=== PATIENT | female | born 1935 | race Caucasian/White ===

== ENCOUNTER 2018-07-08 20:16 | Inpatient (IN) | payer OTHER ==
[~2018-07-08] VITALS: Ht 167.6 cm; Wt 92.4 kg
[2018-07-08] MEDS ORDERED: AIRBORNE TABLE1 EACH PO ×2 (22:09→22:20)
[2018-07-08] MEDS ORDERED: ASPIRIN81 M2 PO (22:10)
[2018-07-08] MEDS ORDERED: LIORESAL 10 MG10 MG PO (22:11)
[2018-07-08] MEDS ORDERED: CALCIUM MAGNES1 EAC2 PO (22:12)
[2018-07-08] MEDS ORDERED: DICLOFENAC SODI25 MG PO (22:13)
[2018-07-08] MEDS ORDERED: IBUPROFEN 200200 M1 PO (22:14)
[2018-07-08] MEDS ORDERED: ESTRADIOL 1 MG T1 M1 PO (22:14)
[2018-07-08] MEDS ORDERED: LISINOPRIL20 MG PO (22:15)
[2018-07-08] MEDS ORDERED: ANTIVERT25 MG PO (22:15)
[2018-07-08] MEDS ORDERED: MIRALAX17 GM PO (22:16)
[2018-07-08] MEDS ORDERED: CENTRUM SILVER1 EAC2 PO (22:16)
[2018-07-08] MEDS ORDERED: REQUIP 0.25 M0.25 M1 PO (22:17)
[2018-07-08] MEDS ORDERED: STOOL SOFTENER100 MG PO (22:17)
[2018-07-08] MEDS ORDERED: AFRIN30 ML NASAL (22:19)
[2018-07-09] VITALS (8 sets, daily range): BP systolic 103–121; BP diastolic 56–70
[2018-07-09 03:42] LABS: ALBUMIN 2.3 g/dL (3.4-5.0); CALCIUM 7.9 mg/dL (8.5-10.1); CREATININE 0.8 mg/dL (0.6-1.0); MAGNESIUM 1.9 mg/dL (1.8-2.4); POTASSIUM 3.3 mmol/L (3.5-5.1); TOTAL BILIRUBIN 1.2 mg/dL (<0.1-1.0); TOTAL PROTEIN 5.7 g/dL (6.4-8.2)
[2018-07-09 04:00] LABS: HEMATOCRIT 39.5 % (37.0-47.0); HEMOGLOBIN 13.6 gm/dL (12.0-15.0); MCHC 34.4 g/dL (28.0-37.0); RBC 4.24 mil/uL (4.20-5.00); RDW 14.3 % (10.5-14.5); WBC 10.4 thou/uL (4.0-11.0)
--- NOTE | 2018-07-09 04:00 | NUR ---
PT. ARRIVED AROUND 2200; AOX4; C/O ABDOMINAL PAIN; 09/09; REFUSED PAIN MEDICATION; ST. ABLE TO WALK BY HERSEF, BUT FEEL WEAK; EDUCATED ABOUT FALL PREVENTIONS; ST. UNDERSTANDING; VICE PRESIDENT PAYMENT NOTIFIED OF PT. ARRIVAL; ORDERS ACKNOWLEDGE; PT. REQUESTED PRN NAUSEA MEDICATION; PRN MEDICATION GIVEN; ABLE TO REST AFTER 0100; NO C/O NAUSEA THROUGH THE NIGHT; NS HEART RHYTHM; NPO AFTER MIDNIGHT; ASSESSMENT CHARGED; POC INITIATED; WILL PASS ON REPORT.
--- NOTE | 2018-07-09 11:22 | 2DMMODE ---
[facility] [address] [place] [address] 2 D/M-MODE ECHOCARDIOGRAM Name: ANALI RUSSO Room #: 218-P ADM IN M.R.#: [id number] ������������� Admission: 07/08/18 ������������� Attend Phys: Enoc Faust, Discharge: ��� ������������� ��� Date of : 37 Date of Service: 07/09/18 1122 �� Report #: [id number] �������� ��������������������������������������������[id number] THIS REPORT FOR: //name// APPROVED REPORT Study performed: 07/09/2018 10:22:59 EXAM: Comprehensive 2D, Doppler, and color-flow Echocardiogram Patient Location: Echo lab Room #: 218 Status: routine BSA: 1.93 HR: 70 bpm BP: 121/70 mmHg Rhythm: NSR Other Information Study Quality: Good Indications Atrial flutter 2D Dimensions RVDd: 49.09 mm IVSd: 10.54 (7-11mm) LVOT Diam: 23.39 (18-24mm) LVDd: 42.12 mm PWd: 10.86 (7-11mm) Ascending Ao: 33.90 (22-36mm) LVDs: 27.82 (25-40mm) Aortic Root: 30.61 mm IVC: 29.00 mm Volumes Left Atrial Volume (Systole) Single Plane 4CH: 61.92 mL Single Plane 2CH: 66.20 mL LA ESV Index: 37.00 mL/m2 Aortic Valve LVOT Max P.93 mmHg LVOT Max V: 0.99 m/s Mitral Valve E/A Ratio: 1.5 MV Decel. Time: 152.40 ms MV E Max Gato.: 1.06 m/s MV A Gato.: 0.70 m/s MV PHT: 44.19 ms [facility] [place] [address] [place] [address] 2 D/M-MODE ECHOCARDIOGRAM Name: ANALI RUSSO Room #: 218-P [facility] IN ..#: [id number] ������������� Admission: 07/08/18 ������������� Attend Phys: Enoc Faust, Discharge: ��� ������������� ��� Date of : 37 Date of Service: 07/09/18 1122 �� Report #: [id number] �������� ��������������������������������������������[id number] IVRT: 92.27 ms Pulmonary Valve PV Peak Gato.: 0.73 m/s PV Peak Gr.: 2.13 mmHg Pulmonary Vein P Vein S: 0.53 m/s P Vein A: 0.29 m/s P Vein D: 0.43 m/s P Vein A Dur.: 106.1 msec P Vein S/D Ratio: 1.23 Tricuspid Valve TR Peak Gato.: 2.90 m/s TR Peak Gr.: 33.63 mmHg PA Pressure: 44.00 mmHg Left Ventricle The left ventricle is normal size. There is normal LV segmental wall motion. There is normal left ventricular wall thickness. The left ventricular systolic function is normal. The left ventricular ejection fraction is within the normal range. LVEF is 60-65%. Grade II - pseudonormal filling dynamics. Right Ventricle The right ventricle is normal size. The right ventricular systolic function is normal. Atria Left atrium is dilated. Right atrium is dilated. Aortic Valve The aortic valve is normal in structure. No aortic regurgitation is present. There is no aortic valvular stenosis. Mitral Valve The mitral valve is normal in structure. Mild mitral regurgitation. No evidence of mitral valve stenosis. Tricuspid Valve The tricuspid valve is normal in structure. There is moderate tricuspid regurgitation. Estimated PAP 44 mmHg. There is moderate pulmonary hypertension. Pulmonic Valve The pulmonary valve is normal in structure. There is no pulmonic valvular regurgitation. [facility] [address] [place] [address] 2 D/M-MODE ECHOCARDIOGRAM Name: ANALI RUSSO Room #: 218-P [facility] IN M.R.#: [id number] ������������� Admission: 07/08/18 ������������� Attend Phys: Enoc Faust, Discharge: ��� ������������� ��� Date of : 37 Date of Service: 07/09/18 1122 �� Report #: [id number] �������� ��������������������������������������������[id number] Great Vessels The aortic root is normal in size. IVC is dilated and collapses <50% with inspiration. Pericardium There is no pericardial effusion. <Conclusion> The left ventricle is normal size. There is normal left ventricular wall thickness. The left ventricular systolic function is normal. Grade II - pseudonormal filling dynamics. The right ventricle is normal size. Left atrium is dilated. Right atrium is dilated. The aortic valve is normal in structure. Mild mitral regurgitation. There is moderate tricuspid regurgitation. Estimated PAP 44 mmHg. ��������������������������������������������� <ELECTRONICALLY SIGNED> ���������������������������������������� By: Terrell Richards MD ��������������������������������������������� 07/09/18 112 21 21 Terrell Richards MD /INF
--- NOTE | 2018-07-09 11:42 | H ---
[facility] [place] [address] [place] [address] HISTORY AND PHYSICAL Name: ANALI RUSSO Room #: 218-P ADM IN M.R.#: [id number] Admission: 07/08/18 ������������������ Attend Phys: Enoc Faust DO Discharge: ������������������ Date of : 36 Report #: [id number] THIS REPORT FOR: //name// CC: [facility] physician/PCP Aki Ware DATE OF SERVICE: 07/08/2018 ATTENDING PHYSICIAN: Dr. Ware. PRIMARY CARE PHYSICIAN: Marni Kaba, nurse practitioner with Leonardo Felton. CHIEF COMPLAINT: Abdominal pain and rapid heart rate. HISTORY OF PRESENT ILLNESS: The patient is an 83-year-old female who was sent as a direct admission from [facility] for abnormal abdominal CT findings as well as new onset atrial flutter with rapid ventricular response. She had presented there with a 5-day history of nausea, vomiting and diarrhea. She has been having multiple episodes of vomiting and decreased p.o. intake with a few episodes of loose stools. She denies any fevers. She also complains of some upper abdominal soreness for the last 2 days. She denies seeing any blood in her emesis or stools. Denies any ill contacts. Denies eating out at any restaurants or any spoiled foods. She lives with her spouse who has not had any similar illness. She had been trying some bland foods at home and still her symptoms were not improving, so she presented to the ER at [place]. Upon arrival, her heart rate was 155 in an atrial flutter rhythm. She denies any history of atrial flutter or any cardiac problems. She did note that she had been feeling worn out and with generalized weakness for the last few days. She did not have any palpitations or shortness of breath. She did have some slight chest heaviness. She was given a Cardizem bolus in the ER there that converted her to sinus rhythm. Her GI symptoms also were improving after receiving antiemetics. She denies any history of pancreas or gallbladder issues, but does note that sometimes when she is lying in bed, she will have some sharp pains in the right upper quadrant and they will "make me catch my breath, "it will take her a while to reposition and eventually the pain will go away. She does not necessarily relate this to after eating, but it has been occurring more and more frequently over the last few months. She is currently resting comfortably, in no acute distress. PAST MEDICAL HISTORY: Osteoporosis, hypertension, vertigo and restless leg syndrome. PAST SURGICAL HISTORY: Hysterectomy, left total knee replacement and cataract repair. ALLERGIES: CODEINE CAUSES ANXIETY AND NERVOUSNESS. [address] [address] HISTORY AND PHYSICAL Name: ANALI RUSSO Room #: 218-P ADM IN M.R.#: [id number] Admission: 07/08/18 ������������������ Attend Phys: Enoc Faust DO Discharge: ������������������ Date of : 36 Report #: [id number] HOME MEDICATIONS: Baclofen 10 mg p.o. t.i.d., lisinopril 20 mg daily, aspirin 81 mg daily, diclofenac 50 mg b.i.d., ibuprofen 200 mg b.i.d., Requip 0.25 mg at bedtime, calcium, glucosamine, magnesium 1 tab p.o. daily, Afrin nasal spray p.r.n., MiraLax 17 grams daily, Colace 100 mg b.i.d., meclizine p.r.n., estradiol 1 mg p.o. daily and multivitamin 1 tab daily. SOCIAL HISTORY: The patient is a never smoker, denies any alcohol or drug use. She lives at home with her spouse. She ambulates independently. She is a full code. FAMILY HISTORY: Her sister is currently battling stage 4 lung cancer. She was never a smoker. Her mother suddenly they think from an ND after having flu symptoms. REVIEW OF SYSTEMS: Twelve-point review of systems was reviewed with the patient, otherwise negative unless stated in the HPI. PHYSICAL EXAMINATION: GENERAL: The patient is an alert female in no acute distress. VITAL SIGNS: Temperature is 36.4, heart rate 72, respirations 18, blood pressure 103/60 and oxygen 100% on room air. HEENT: PERRLA. Sclerae nonicteric. Oral mucosa is pink and moist. NECK: Supple, no JVD noted. CARDIAC: Normal S1, S2. No murmurs, rubs or gallops. RESPIRATORY: Breath sounds are clear bilaterally. She is diminished in the bases. Breathing is nonlabored. ABDOMEN: Obese, soft and nondistended. She did have some slight pain with palpation in the epigastric and right upper quadrant. Bowel sounds are positive. VASCULAR: 1+ bilateral lower extremity edema. Pedal pulses are 2+. NEUROLOGIC: The patient is alert and oriented x 3. Speech is clear. She is moving all extremities equally. No focal neuro deficits noted. LABORATORIES AND DIAGNOSTICS: Blood work done at [place] showed a WBC of 14.2, hemoglobin 17 and platelets 202. Sodium 136, potassium 3.4, BUN 24, creatinine 0.9 and glucose is 137. Lactic acid is 1.7, lipase 432 and bilirubin 1.4. AST 57, ALT 274 and alkaline phosphatase 133. Troponin is less than 0.17 and INR 1.0. UA: Positive nitrite, moderate leukocyte esterase, 50-100 wbc's and moderate bacteria. EKG showed atrial flutter, 2:1 conduction and rate of 154. CT of abdomen and pelvis showed edema seen within the upper abdomen including adjacent to the stomach and pancreas. Some possible causes include pancreatitis as well as gastritis or gastric ulcer and would consider followup to ensure this is resolved and there is not an underlying neoplastic cause such as a gastric wall mass. There may be some fluid within the pelvis with a portion of it appearing slightly larger than simple density. This could be secondary to some [facility] [address] [place] [address] HISTORY AND PHYSICAL Name: ANALI RUSSO Room #: 218-P ADM IN M.R.#: [id number] Admission: 07/08/18 ������������������ Attend Phys: Enoc Faust DO Discharge: ������������������ Date of : 36 Report #: [id number] internal complexity from causes such as debris or blood within. At the left lung base, there is a focus of consolidation as well as fluid. This could be secondary to atelectasis, but pneumonia is also in the differential. The gallbladder was somewhat distended and there are prominence of some of the intrahepatic bile ducts and there is a couple of sub 4 mm nodules of the right lung base. ASSESSMENT AND PLAN: 1. Pancreatitis. Etiology for this is not clear, but it is possibly gallstone pancreatitis as there are some elevations in bilirubin and liver enzymes and gallbladder sludge noted on CT. We will keep her n.p.o. for ultrasound of the abdomen in the morning. GI is consulted. 2. Atrial flutter with rapid ventricular response. This is new onset. This did resolve with Cardizem bolus x 1. We will check TSH level and echo in the morning. This may be possibly due to her current infections. Continue to monitor on telemetry. 3. Urinary tract infection. She has not been symptomatic with this. We will add urine culture and continue Zosyn 4. Possible left-sided pneumonia. She does have minimal symptoms. We will add blood cultures. Continue Zosyn and add nebulizer treatments. 5. Hypokalemia. This will be replaced. Repeat labs in the morning. 6. Deep venous thrombosis prophylaxis, place sequential compression devices. We will continue to follow the patient closely throughout the hospitalization and make changes based on clinical status. ��������������������������������������������� <ELECTRONICALLY SIGNED> ���������������������������������������� By: JAQUELINE Richardson ��������������������������������������������� 07/09/18 1142 [id number] JAQUELINE Richardson /nt
[2018-07-09 13:29] LABS: ALBUMIN 2.3 g/dL (3.4-5.0); CALCIUM 8.5 mg/dL (8.5-10.1); CREATININE 0.8 mg/dL (0.6-1.0); POTASSIUM 3.8 mmol/L (3.5-5.1); TOTAL PROTEIN 5.8 g/dL (6.4-8.2)
--- NOTE | 2018-07-09 18:48 | NUR ---
ASSUMED CARE, PATIENT AWAKE AND ALERT BUT UNCOMFORTABLE. VSS, DR. ROSALES CALLED AND ORDERS RECIEVED FOR MUCINEX. ECHO COMPLETED, DIET ADVANCED TO FULL LIQUID. IF TOLERATING AND LABS ARE WNL, WILL GO HOME IN AM
--- NOTE | 2018-07-10 03:32 | NUR ---
ASSUMED PT CARE AT 1900. PT A/OX4. VITAL SIGNS STABLE, ASSESSMENT CHARTED. NO COMPLAINTS OF CHEST PAIN/ABDOMINAL PAIN. PT COMPLAINED OF SOME NAUSEA, ZOFRAN GIVEN WHICH SEEMED TO HELP. NO FURTHER COMPLAINTS OF NAUSEA THROUGH OUT THE NIGHT. CONSENT FOR EGD SIGNED. PT RESTED WELL THROUGH THE NIGHT. PROGRESSING TOWARD PLAN OF CARE. WILL CONTINUE TO CLOSELY MONITOR.
[2018-07-10 04:51] LABS: ABSOLUTE NEUTROPHILS 9.6 thou/uL (1.4-8.2); BASOPHILS 0.4 % (0.0-2.0); EOSINOPHILS 0.5 % (0.0-3.0); HEMATOCRIT 35.9 % (37.0-47.0); HEMOGLOBIN 12.3 gm/dL (12.0-15.0); LYMPHOCYTES 4.4 % (24.0-44.0); MCH 31.6 pg (26.0-34.0); MCHC 34.2 g/dL (28.0-37.0); MCV 92.2 fL (80.0-100.0); PLATELET COUNT 147 thou/uL (150-400); POLYS 86.7 % (36.0-66.0); RBC 3.89 mil/uL (4.20-5.00); RDW 14.5 % (10.5-14.5); WBC 11.1 thou/uL (4.0-11.0)
[2018-07-10 05:43] VITALS: BP 106/56
[2018-07-10 07:10] VITALS: BP 104/66
[2018-07-10 16:11] VITALS: BP 117/91
--- NOTE | 2018-07-10 16:40 | NUR ---
CAME BACK FROM EGD AT 1600, VSS, DENIES ANY PAIN. TOOK ALL HER SCHEDUELD MORNING MEDS. STILL HAS SOME BELCHING. FEELS BETTER OVERALL. WILL CONTINUE TO ASSESS AND ASSIST WITH ADLs NEEDED.
[2018-07-10 19:37] VITALS: BP 108/46
[2018-07-10 20:57] VITALS: BP 108/46
[2018-07-11 04:10] VITALS: BP 133/68
--- NOTE | 2018-07-11 04:18 | NUR ---
ASSUMED PT CARE AT 1900. PT A/OX4, STATED SHE FELS VERY GOOD. VITAL SIGNS STABLE, ASSESSMENT CHARTED. NO COMPLAINTS OF PAIN, NO COMPLAINTS OF NAUSEA OR EPISODES OF VOMITING. PT TOLERATING FULL LIQUIDS APPROPRIATELY. PT RESTED WELL THROUGH THE NIGHT. CALL APPROPRIATELY. PROGRESSING TOWARD PLAN OF CARE. WILL CONTINUE TO MONITOR.
[2018-07-11] MEDS ORDERED: CEFUROXIME250 MG PO (07:55)
[2018-07-11] MEDS ORDERED: PANTOPRAZOLE SO40 M1 PO (07:56)
[2018-07-11] MEDS ORDERED: CARAFATE 1 GM TA1 G1 PO (07:56)
[2018-07-11] MEDS ORDERED: LOPRESSOR25 PO (08:00)
[2018-07-11 08:32] VITALS: BP 106/55
[2018-07-11 12:00] VITALS: BP 117/57
--- NOTE | 2018-07-11 15:30 | P ---
[facility] [place] [address] [address] PROCEDURE REPORT Name: ANALI RUSSO Room #: 218-P ADM IN M.R.#: [id number] Admission: 07/08/18 ������������������ Attend Phys: Enoc Faust DO Discharge: ������������������ Date of : 36 Report #: [id number] THIS REPORT FOR: //name// CC: [facility] physician/PCP Enoc Faust DO DATE OF SERVICE: 07/10/2018 PATIENT OF: Enoc Faust DO. PROCEDURE: EGD with biopsies. INDICATION FOR PROCEDURE: The patient has had nausea, vomiting, epigastric pain, and thickening of the stomach seen on imaging studies. EGD is being performed to try to diagnose this problem. Informed consent for this procedure was obtained prior to the administration of any medication. The risks of the procedure, which include bleeding, perforation, infection, complications of sedation and the possibility I could miss something have been explained to the patient. She has indicated her consent by signing. DESCRIPTION OF PROCEDURE: Propofol was slowly titrated before and during this procedure for the patient comfort by the Anesthesia service. The Olympus upper videoscope was introduced through the upper esophageal sphincter and advanced under direct visualization to the third portion of the duodenum. Findings are noted on withdrawal of the scope. The second portion of the duodenum appears normal throughout its entirety. The duodenal bulb appears erythematous and edematous and there are tiny white based nonbleeding ulcerations scattered throughout the duodenal bulb. Pylorus, erythematous mucosa. Antrum, erythematous mucosa with edema and ulceration. There were no visible vessels or bleeding coming from the ulcerations in the prepyloric region of the antrum. Biopsies were obtained from the antrum x 3 for histopathology. In the body, cardia and fundus of the stomach, there are several sessile polyps that appear to be benign. These are biopsied x 2 for histopathology. Good hemostasis was noted after those biopsies. Retroflex view did not reveal any hiatal hernia. The scope was withdrawn to the esophagus. Esophageal mucosa appeared normal throughout its entirety. The scope was withdrawn. The patient went to the recovery area in stable condition. She tolerated the procedure well. IMPRESSION: 1. Normal esophagus. 2. Multiple proximal gastric polyps, likely benign. I biopsied two of them to [address] [address] PROCEDURE REPORT Name: ANALI RUSSO Room #: 218-P [facility] IN M.R.#: [id number] Admission: 07/08/18 ������������������ Attend Phys: Enoc Faust DO Discharge: ������������������ Date of : 36 Report #: [id number] be sure they were okay and if they are adenomas; however, they will all need to be removed. 3. Prepyloric antral ulcerations, biopsied. No visible vessels, nonbleeding. 4. Duodenitis of the bulb with multiple tiny nonbleeding ulcerations. These contained no visible vessels. 5. The patient's pharyngeal area looks normal. RECOMMENDATIONS: My recommendations are to await the biopsy results. Continue the proton pump inhibitors. I would avoid the use of aspirin and nonsteroidals if at all possible in this patient. Thank you very much for allowing us to participate in her care. ��������������������������������������������� <ELECTRONICALLY SIGNED> ���������������������������������������� By: Jen Mart DO ��������������������������������������������� 07/11/18 1530 1533 0725 Jen Mart DO /nt
[2018-07-11 16:00] VITALS: BP 114/70
[2018-07-11 19:04] VITALS: BP 111/54
--- NOTE | 2018-07-11 20:20 | NUR ---
SHIFT SUMMARY: PT HAD NUMEROUS CONCERNS THROUGHOUT SHIFT TODAY. SEE PT CONCERNS IN PT ASSESSMENT FOR DETAILS. PAGED DR. MILLAN X 2, NO CALL RETURNED. DANIELLE TSAI APRN PRESENT, UPDATED, THEN DISCHARGE DC'D. DR. ZAVALA PRESENT TO SEE PT. PT ALSO CONTINUING TO C/O OF BELCHING. BY SHIFT REPORT, CARAFATE AND PROTONIX IV, RESOLVED BELCHING WITH PT STATING SHE FEELS BETTER. PT LOOKS BETTER, COMPLEXION IMPROVED. NOW, PT STATUS IS IMPROVING.
[2018-07-12] VITALS (7 sets, daily range): BP systolic 111–127; BP diastolic 54–73
--- NOTE | 2018-07-12 04:43 | NUR ---
ASSUMED PT CARE AT 1900. PT A/OX4, VITAL SIGNS STABLE, ASSESSMENT CHARTED. NO COMPLAINTS OF CHEST PAIN/PAIN. NO EPISODES/COMPLAINTS OF NAUSEA. BELGING SIGNIFICANTLY REDUCED PT STATED. PT AMBULATED TWICE IN HALLWAY/ TOLERATED PROCEDURE APPROPRIATELY. NO COMPLAINTS OF DIZZINESS OR WEAKNESS. PT MENTIONED THAT SHE WILL LIKE TO DISCUSS OR REVIEW HER HOME MEDICATIONS WITH DR HOME REGIMEN DIFFERENT FROM WHAT SHE HAS BEEN RECIEVING HERE AT THE HOSPITAL. EDUCATION PROVIDED REGARDING THE CHANGES THAT HAPPEN AND WHY THE CHANGES. PT VERBALIZED THAT MOST OF THE MEDS SHE TAKES MORE THAN ONCE HERE AT THE HOSPITAL SHE NORMALLY TAKES ONLY ONCE AT HOME. PT WAS ENCOURGAED TO DISCUSS WITH DR DURING ROUNDS. SHE STATED SHE WILL LIKE TO START TAKING SOME MEDICATION FOR HER ARTHRITIS AND BACK PAIN. WILL PASS ON TO DAY NURSE. PT OTHER PARRA RESTED WELL THROUGH THE NIGHT. PROGRESSING TOWARD PLAN OF CARE. WILL CONTINUE TO MONITOR.
[2018-07-12 05:20] LABS: HEMATOCRIT 35.1 % (37.0-47.0); HEMOGLOBIN 12.1 gm/dL (12.0-15.0); MCHC 34.5 g/dL (28.0-37.0); MCV 92.6 fL (80.0-100.0); RBC 3.79 mil/uL (4.20-5.00); RDW 14.2 % (10.5-14.5); WBC 8.8 thou/uL (4.0-11.0)
[2018-07-12 05:48] LABS: ALBUMIN 1.9 g/dL (3.4-5.0); CALCIUM 8.4 mg/dL (8.5-10.1); CREATININE 0.6 mg/dL (0.6-1.0); POTASSIUM 3.4 mmol/L (3.5-5.1); TOTAL BILIRUBIN 0.4 mg/dL (<0.1-1.0); TOTAL PROTEIN 5.4 g/dL (6.4-8.2)
--- NOTE | 2018-07-12 10:44 | NUR ---
Pt dcing home today with her spouse. Special Services Director visited with them at bedside. Pt is a&ox4 and indep with gait and adl's. She denies any dc planning needs or concerns. She plans to f/u with her pcp Dr. Marni Kaba and GI [place]. She also wanted referral to ENT for future reference. Spouse is supportive and can help as needed. They live in [place]. The pt does not anticipate being home bound and declined HH f/u.
--- NOTE | 2018-07-12 13:08 | PATH ---
[facility] [place] [address] PATHOLOGY RPT PROCEDURE Name: ANALI RUSSO Room #: 218-P ADM IN M.R.#: [id number] ������������������ Admission: 07/08/18 ������������������ Date of : 36 Discharge: Report #: [id number] Path Case #: [id number] [facility] Accession Number: [id number] . 01 Material submitted: . PART A: stomach - BX THICKENED ANTRUM PART B: stomach - BX PROXIMAL GASTRIC POLYP. Modifiers: proximal . 01 Clinical history: . Pre-op diagnosis: N/V, abnormal CT Post-op diagnosis: Gastric ulcers, duodenal bulb ulcer, proximal gastric polyp . 02 Diagnosis: A. 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 - There is no evidence of atypia or malignancy. - The immunoperoxidase stain for Helicobacter pylori is negative. . B. Gastric biopsy "proximal gastric polyp": - Fundic gland polyp. - There is no evidence of atypia or malignancy. (SHA:daksha 07/12/2018) QTP/07/12/2018 . 02 Electronically signed: . Ameya Salter MD, Pathologist NPI- [id number] . 01 Gross description: . A. The specimen is received in formalin, labeled "Marlynne Snare, biopsy thickened antrum". Received are four segments of pale [place] soft tissue ranging in size from 0.3 to 0.4 cm in maximum dimensions. The specimen is submitted entirely in cassette A1. . B. The specimen is received in formalin, labeled "Marlynne Snare, biopsy proximal gastric polyp". Received are two segments of pale [place] soft tissue measuring 0.1 and 0.4 cm in maximum dimensions. The specimen is submitted entirely in cassette B1. (CAA; 07/11/2018) QAC/QAC . 02 Pathologist provided ICD-10: K31.9, K31.7 . 02 [place] [address] PATHOLOGY RPT PROCEDURE Name: ANALI RUSSO Room #: 218-P [facility] IN M.R.#: [id number] ������������������ Admission: 07/08/18 ������������������ Date of : 36 Discharge: Report #: [id number] Path Case #: [id number] Specimen Comment: A courtesy copy of this report has been sent to Specimen Comment: [phone], . Specimen Comment: Report sent to / DR ROSALES Performed at: [address], [place], [place] [id number] MD Marcus Quiroz MD Phone: [phone] Performed at: [address], [place], [place] [id number] MD Elizabeth Arroyo MD Phone: [phone]
== END 2018-07-12 14:24 | disposition home or self-care (01) | DRG 383 ==
LOC: 2N 20:16 → ENTRNSPT 07-12 14:09 → EDTRNSPTSTS 07-12 14:13 → 2N 07-12 14:24
PROVIDERS: Nurse Practitioner; Nurse Practitioner Acute Care; ADMIT Internal Medicine Geriatric Medicine
PROC: 0DB68ZZ Excision of Stomach, Via Natural or Artificial Opening Endoscopic (ICD-10-PCS; principal; 2018-07-10)
PROC: 0DB68ZX Excision of Stomach, Via Natural or Artificial Opening Endoscopic, Diagnostic (ICD-10-PCS; principal; 2018-07-10)
DX: K25.9 Gastric ulcer, unspecified as acute or chronic, without hemorrhage or perforation (principal); K85.90 Acute pancreatitis without necrosis or infection, unspecified; N39.0 Urinary tract infection, site not specified; I48.92 Unspecified atrial flutter; J90 Pleural effusion, not elsewhere classified; K26.9 Duodenal ulcer, unspecified as acute or chronic, without hemorrhage or perforation; M81.0 Age-related osteoporosis without current pathological fracture; G25.81 Restless legs syndrome; I10 Essential (primary) hypertension; E87.6 Hypokalemia; Z96.652 Presence of left artificial knee joint; K31.7 Polyp of stomach and duodenum; K21.9 Gastro-esophageal reflux disease without esophagitis; I48.91 Unspecified atrial fibrillation; E86.0 Dehydration; M62.84 Sarcopenia; Z79.1 Long term (current) use of non-steroidal anti-inflammatories (NSAID); Z90.710 Acquired absence of both cervix and uterus; Z98.49 Cataract extraction status, unspecified eye; Z88.6 Allergy status to analgesic agent; Z88.8 Allergy status to other drugs, medicaments and biological substances; Z80.1 Family history of malignant neoplasm of trachea, bronchus and lung; Z82.49 Family history of ischemic heart disease and other diseases of the circulatory system; Z79.82 Long term (current) use of aspirin; Z79.899 Other long term (current) drug therapy; G89.29 Other chronic pain; K29.80 Duodenitis without bleeding
CPT/HCPCS: 10081; 62110; 62900; 70005

== ENCOUNTER 2018-07-22 17:47 | Inpatient (IN) | payer OTHER ==
[~2018-07-22] VITALS: Ht 167.6 cm; Wt 85.6 kg
[~2018-07-22 17:47] MED LIST: AFRIN30 ML NASAL; AIRBORNE TABLE1 EACH PO; ANTIVERT25 MG PO; ASPIRIN81 M2 PO; CALCIUM MAGNES1 EAC2 PO; CARAFATE 1 GM TA1 G1 PO; CEFUROXIME250 MG PO; CENTRUM SILVER1 EAC2 PO; DICLOFENAC SODI25 MG PO; ESTRADIOL 1 MG T1 M1 PO; IBUPROFEN 200200 M1 PO; LIORESAL 10 MG10 MG PO; LISINOPRIL20 MG PO; LOPRESSOR25 PO; MIRALAX17 GM PO; PANTOPRAZOLE SO40 M1 PO; REQUIP 0.25 M0.25 M1 PO; STOOL SOFTENER100 MG PO
[2018-07-22] MEDS ORDERED: LIORESAL 10 MG10 MG PO (23:04)
[2018-07-22] MEDS ORDERED: COLACE100 MG PO (23:05)
[2018-07-22] MEDS ORDERED: AFRIN30 ML NASAL (23:07)
[2018-07-22] MEDS ORDERED: FLONASE 0.05%50 MCG NASAL (23:08)
[2018-07-22 23:10] VITALS: BP 118/76
--- NOTE | 2018-07-23 04:09 | NUR ---
ADMITTED FROM [facility] ER UNDER 'S CARE. ADMIT WITH CHF, AFIB RVR. AXOX4. GOOD HISTORIAN OF PT'S HEALTH. AFIB UNCONTROLLED HR UPON TRASFER. PT WAS ON CARDIZEM DRIP UPON ADMISSION. HOWEVER, HR RHYTHM CONVERTED TO SR SHORTLY AFTER ADMISSION AND RATE BECAME WITHIN NORMAL RANGES. UPON ASSESSMET HEART RR NORMAL AND CHEST CTA BILAT ON RA. PT WAS EVALUATED AT THE BEDSIDE BY [employer] IRON SETTER, GUIDE FOR . C/O NECK TENDERNESS AND PAIN. US THYROID AND NECK SOFT TISSUE ORDERED FOR AM. NO S/S ACUTE DISTRESS NOTED OR REPORTED AT THIS TIME. WILL CONT TO MONITOR ANY CHANGES IN CONDITION.
[2018-07-23 04:48] VITALS: BP 117/71
[2018-07-23 05:36] LABS: HEMATOCRIT 34.6 % (37.0-47.0); HEMOGLOBIN 11.9 gm/dL (12.0-15.0); MCH 31.5 pg (26.0-34.0); MCHC 34.5 g/dL (28.0-37.0); MCV 91.3 fL (80.0-100.0); RBC 3.79 mil/uL (4.20-5.00); RDW 13.6 % (10.5-14.5); WBC 7.6 thou/uL (4.0-11.0)
[2018-07-23 05:45] LABS: CALCIUM 8.4 mg/dL (8.5-10.1); CREATININE 0.6 mg/dL (0.6-1.0); POTASSIUM 3.4 mmol/L (3.5-5.1)
[2018-07-23 07:32] VITALS: BP 121/75
--- NOTE | 2018-07-23 08:39 | NUR ---
ASSESSMENT: CM REVIEWED CHART AND MET WITH PATIENT AT THE BEDSIDE. PT IS ALERT AND ORIENTED X4. PT WAS A DIRECT ADMIT FROM [facility] FROM CHF/PLEURAL EFFUSION/PULMONARY NODULES. PT REPORTS SHE LIVES IN A HOUSE WITH HER . PT REPORTS ONE STEP TO ENTER AND NO STEPS SHE USES ONCE INSIDE. PT REPORTS SHE AMBULATES INDEPENDENTLY AND DOES NOT HAVE ANY DME OR THE NEED FOR IT. PT REPORTS BEING INDEPENDENT WITH ADLS. PT STATES SHE HAS HH YEARS AGO BUT HAS NOT HAD IT RECENTLY AND SHE IS UNSURE THE AGENCY SHE HAD. PT DENIES BEING TO A SNF. CM DISCUSSED ROLE. PT STATES SHE DOES NOT ANTICIPATE HAVING ANY NEEDS AT DISCHARGE AND DOES NOT FEEL SHE WILL NEED HH. CM WILL CONTINUE TO FOLLOW TO ASSIST NEEDED.
[2018-07-23 11:33] VITALS: BP 103/60
[2018-07-23] MEDS ORDERED: CARAFATE 1 GM TA1 G1 PO (12:01)
[2018-07-23] MEDS ORDERED: TYLENOL EXTRA500 MG PO (12:02)
[2018-07-23 15:55] VITALS: BP 132/79
--- NOTE | 2018-07-23 17:25 | NUR ---
PT HAS DIURESESD WELL TODAY AFTER 2 DOSES OF LASIX...EDEMA HAS RESOLVED...EDUCATION SHEETS GIVEN TO PATIENT AND SPOUSE RE CHF DX...
[2018-07-23 20:10] VITALS: BP 112/67
[2018-07-24 03:55] VITALS: BP 109/67
--- NOTE | 2018-07-24 05:04 | NUR ---
POC FOR DC MOVING FORWARD WITH GOOD SUCCESS. PT COULD POSSIBLY DC TODAY AND HAVE FOLLOW UP VISITS WITH CARDIOLOGY OUTPATIENT. PT WILL NEED TO SCHEDULE OUTPATIENT NUCLEAR STRESS TEST ALSO. PT WILL RECEIVE ANOTHER DOSE OF LASIX THIS AM. PT RESTED IN CHAIR UNTIL 2200. DURING ASSESSMENT SPOKE WITH PT ABOUT HOME MEDICATIONS AND SHE ASKED WHY HER CARAFATE WAS NOT RESTARTED. CALLED SR. VENDOR MANAGEMENT ASSOCIATE [employer] AND GOT IT PUT BACK ON TO MEDICATION LIST. PT STATES NO N/V NOR PAIN. HOURLY ROUNDING.
[2018-07-24 05:33] LABS: HEMATOCRIT 37.8 % (37.0-47.0); MCHC 34.3 g/dL (28.0-37.0); MCV 90.2 fL (80.0-100.0); RBC 4.19 mil/uL (4.20-5.00); WBC 7.3 thou/uL (4.0-11.0)
[2018-07-24 05:38] LABS: ALBUMIN 2.4 g/dL (3.4-5.0); CALCIUM 8.5 mg/dL (8.5-10.1); CREATININE 0.8 mg/dL (0.6-1.0); PHOSPHORUS 3.5 mg/dL (2.5-4.9); POTASSIUM 3.2 mmol/L (3.5-5.1)
[2018-07-24 07:26] VITALS: BP 121/78
--- NOTE | 2018-07-24 10:01 | NUR ---
PT STATES NOT FEELING GOOD TODAY YESTERDAY. CARDIOLOGY IN AND CHANGED LASIX TO DEMADEX STARTING THIS AFTERNOON. NO EDEMA IN LEGS. BREATHING REG. AMBULATING STEADY.
[2018-07-24 11:25] VITALS: BP 140/64
--- NOTE | 2018-07-24 15:06 | NUR ---
ON-GOING ASSESSMENT: CM REVIEWED CHART AND MET WITH PATIENT AT THE BEDSIDE. CM DISCUSSED HOW ATTENDING THOUGHT PATIENT WOULD BENEFIT FROM HH AND SHE AGREES. PT STATES SHE DOES NOT HAVE A PREFERENCE OF AGENCY JUST STATED WHOEVER GOES TO WHERE SHE LIVES SINCE [place]. CM CHECKED WITH [facility] AND THEY DO NOT SERVICE THIS AREA. CM CONTACTED A HH WHO STATES THEY DO SERVICE THIS AREA AND CAN ACCEPT PATIENT. CM FAXED REFERRAL AND NOTIFIED THEM OF POSSIBLE DISCHARGE TOMORROW.
[2018-07-24 15:41] VITALS: BP 104/59
--- NOTE | 2018-07-24 18:36 | HC ---
[facility] [place] [address] CONSULTATION Name: ANALI RUSSO Room #: 354-P ADM IN M.R.#: [id number] Admission: 07/22/18 ������������������ Attend Phys: Adriel Caruso Discharge: ������������������ Date of : 37 Report #: [id number] THIS REPORT FOR: //name// CC: DMITRY physician/PCP Adriel Caruso PULMONARY CONSULTATION REFERRAL PHYSICIAN: Dr. Ware. REASON FOR REFERRAL: Pleural effusions. HISTORY OF PRESENT ILLNESS: The patient is an 83-year-old white female who was admitted for heart failure along with bilateral pleural effusion. A pulmonary consultation was requested. The patient was hospitalized early this month from 07/08/2018 to 07/12/2018 for abdominal discomfort, possible pancreatitis, urinary tract infection. She was also found to have atrial flutter with rapid ventricular response. She was seen by GI service. She was found to have nonbleeding ulcers. Biopsy was performed. She was subsequently dismissed. She was doing fairly well until when she was seen in the physician's primary care office. A chest x-ray performed on that day of admission showed bilateral pleural effusion. She was referred to the [facility] Emergency Department. She was then subsequently directly admitted to the [facility]. Currently, she complains of mild abdominal discomfort, mild dyspnea. Otherwise, denies any productive cough, night sweats or chills. Of note, CT chest angiogram performed on 07/22/2018 showed no evidence of pulmonary embolus, moderate bilateral pleural effusion, great in the left than the right; multiple small lung nodules. PAST MEDICAL HISTORY: As mentioned above. Recent admission for abdominal discomfort, possible pancreatitis, UTI, osteoporosis, hypertension, vertigo, restless legs syndrome. EGD performed on 07/10/2018 shows multiple gastric polyps, nonbleeding ulcers, duodenitis. PAST SURGICAL HISTORY: As mentioned above including hysterectomy, left knee surgery, vein stripping. ALLERGIES: CODEINE, reactions not specified. HOME MEDICATIONS: Include Protonix, Lopressor, aspirin, Estrace, Zestril, Centrum, Requip 0.25 mg once a day, baclofen, Colace, Flonase. [facility] [address] [place] [address] CONSULTATION Name: ANALI RUSSO Room #: 354-P ADM IN .R.#: [id number] Admission: 07/22/18 ������������������ Attend Phys: Adriel Caruso Discharge: ������������������ Date of : 37 Report #: [id number] FAMILY HISTORY: Noncontributory. SOCIAL HISTORY: The patient has never smoked. Denies any alcohol use. REVIEW OF SYSTEMS: As mentioned above, otherwise 10-point system review negative. PHYSICAL EXAMINATION: GENERAL: She is awake, alert, in no distress. VITAL SIGNS: Temperature is 98 degrees Fahrenheit, pulse is 80, respiratory rate is 24, blood pressure 130/79 mmHg, saturation is 96%. HEENT: Normocephalic, atraumatic. NECK: Supple, without lymphadenopathy or thyromegaly. CHEST: Breath sounds are decreased bilaterally in the bases. No rales or wheezes. CARDIOVASCULAR: Irregular rhythm, no murmurs or gallop. Pulses are 2+/4+ bilaterally. ABDOMEN: Soft, mildly tender, no masses felt. I did not elicit for rebound tenderness. GENITOURINARY: Deferred. RECTAL: Deferred. EXTREMITIES: There is no edema, cyanosis or clubbing. NEUROLOGIC: Grossly intact. LABORATORY DATA: Chest x-ray shows moderate left-sided pleural effusion, small right-sided pleural effusion. Ultrasound of the thyroid gland shows mildly inhomogeneous thyroid, possibly thyroiditis. Recent echocardiogram was normal. Electrolytes are normal. CBC is normal. IMPRESSION: 1. Bilateral pleural effusion in this 83-year-old white female with a recent urinary tract infection, possible pancreatitis, atrial fibrillation. She was felt to be in heart failure. Etiology possibly related to an intra-abdominal inflammatory process versus urinary tract infection and sepsis. Heart failure is certainly conceivable. Diuretics have been initiated. 2. Questionable pneumonia, left lower lobe, I think a small pleural fluid and infiltrates. 3. Pulmonary nodules by CT chest angiogram. These appear to be small, but will need followup. We will repeat CAT scan approximately in 4-6 months. The patient has never smoked. 4. Hypertension. 5. Atrial fibrillation/flutter, currently in sinus rhythm. 6. Prepyloric ulcers, duodenitis, gastric polyps, status post biopsy. RECOMMENDATIONS: We will continue to follow closely. Diuretics have been started. If pleural effusion does not resolve, diagnostic and therapeutic [address] [address] CONSULTATION Name: KARANROBERTYENNYVeronica FLETCHER Room #: 354-P ADM IN M.R.#: [id number] Admission: 07/22/18 ������������������ Attend Phys: Adriel Caruso Discharge: ������������������ Date of : 37 Report #: [id number] thoracentesis is recommended on the left side. DVT and GI prophylaxis recommended. In regards to the lung nodule, recommend followup CT chest in approximately 4-6 months. ��������������������������������������������� <ELECTRONICALLY SIGNED> ���������������������������������������� By: Abelino Francisco MD ��������������������������������������������� 07/24/18 1836 1825 10 Abelino Francisco MD /nt
[2018-07-24 20:20] VITALS: BP 100/61
[2018-07-25 04:25] VITALS: BP 106/69
[2018-07-25 04:30] VITALS: BP 121/69
[2018-07-25 05:18] LABS: ALBUMIN 2.6 g/dL (3.4-5.0); CALCIUM 9.4 mg/dL (8.5-10.1); CREATININE 1.2 mg/dL (0.6-1.0); PHOSPHORUS 4.1 mg/dL (2.5-4.9)
[2018-07-25 05:21] LABS: POTASSIUM 4.3 mmol/L (3.5-5.1)
--- NOTE | 2018-07-25 06:28 | NUR ---
PT MOVING IN POSITIVE DIRECTION FOR DC GOALS. PT WILL FOLLOW UP FOR NUCLEAR STRESS TEST OUTPATIENT. PT WAS UP ROUNDING ON UNIT. DURING ASSESSMENT PT STATES SHE DOES NOT HAVE ANY N/V NOR PAIN. PT ALSO STATES SHE IS FEELING MORE CONFIDENT IN GOING HOME. HOURLY ROUNDING.
[2018-07-25 07:23] VITALS: BP 102/64
[2018-07-25 07:39] VITALS: BP 102/64
[2018-07-25] MEDS ORDERED: LEVAQUIN 500 M500 M2 PO (08:57)
[2018-07-25] MEDS ORDERED: TORSEMIDE20 MG PO (08:58)
[2018-07-25] MEDS ORDERED: KLOR-CON 1010 MEQ PO (08:59)
[2018-07-25] MEDS ORDERED: XARELTO20 MG PO (09:04)
[2018-07-25 10:00] VITALS: BP 102/64
--- NOTE | 2018-07-25 11:48 | NUR ---
DISCHARGE ORDERS RECEIVED. PATIENT DISCHARGING TO HOME WITH VISITING NURSES [facility]. DISCHARGE/HOME HEALTH ORDERS AND DISCHARGE SUMMARY FAXED TO [facility] INTAKE. CALL PLACED TO [facility], SPOKE WITH BARB. RIVERA TO FACILITATE PATIENTS HH NEEDS. UNIT CM/SW AWARE. UNIT RN AWARE.
--- NOTE | 2018-07-25 11:59 | NUR ---
PT SENT HOME ON TORSEMIDE...GIVEN MED SHEET ON NEW DRUGS...FOLLOW UP APPOINTMENT SCHEDULED WITH STRESS TEST...
== END 2018-07-25 11:56 | disposition home health service (06) | DRG 291 ==
LOC: 3W 17:47 → ENTRNSPT 07-25 11:22 → EDTRNSPTSTS 07-25 11:39 → 3W 07-25 11:56
PROVIDERS: Nurse Practitioner Family; ADMIT Hospitalist
DX: I11.0 Hypertensive heart disease with heart failure (principal); J18.9 Pneumonia, unspecified organism; I48.92 Unspecified atrial flutter; E46 Unspecified protein-calorie malnutrition; I50.33 Acute on chronic diastolic (congestive) heart failure; M81.0 Age-related osteoporosis without current pathological fracture; G25.81 Restless legs syndrome; R91.1 Solitary pulmonary nodule; Z96.652 Presence of left artificial knee joint; I48.0 Paroxysmal atrial fibrillation; E87.6 Hypokalemia; Z90.710 Acquired absence of both cervix and uterus; Z88.6 Allergy status to analgesic agent; Z86.010 Personal history of colon polyps; Z98.42 Cataract extraction status, left eye; Z98.41 Cataract extraction status, right eye; Z79.82 Long term (current) use of aspirin; Z79.899 Other long term (current) drug therapy; Z68.30 Body mass index [BMI] 30.0-30.9, adult
CPT/HCPCS: 10779; 10879

== ENCOUNTER → 2018-07-30 | Outpatient (CLI) | payer OTHER ==
[~2018-07-30] MED LIST changes: +COLACE100 MG PO; +FLONASE 0.05%50 MCG NASAL; +KLOR-CON 1010 MEQ PO; +LEVAQUIN 500 M500 M2 PO; +TORSEMIDE20 MG PO; +TYLENOL EXTRA500 MG PO; +XARELTO20 MG PO
== END ==
LOC: RAD 11:54
DX: J90 Pleural effusion, not elsewhere classified (principal)

== ENCOUNTER → 2018-10-21 | Outpatient (CLI) | payer OTHER ==
[~2018-10-21] VITALS: Ht 167.6 cm; Wt 79.4 kg
[~2018-10-21] MED LIST changes: +PROTONIX40 M1 PO; +TOPROL XL25 MG PO; +TORSEMIDE10 MG PO
== END | disposition home or self-care (01) ==
LOC: GI 08:17
DX: K25.9 Gastric ulcer, unspecified as acute or chronic, without hemorrhage or perforation (principal); K31.7 Polyp of stomach and duodenum; K31.89 Other diseases of stomach and duodenum; K44.9 Diaphragmatic hernia without obstruction or gangrene; I11.0 Hypertensive heart disease with heart failure; I50.9 Heart failure, unspecified; I48.91 Unspecified atrial fibrillation; K21.9 Gastro-esophageal reflux disease without esophagitis; E87.6 Hypokalemia; Z87.11 Personal history of peptic ulcer disease; Z98.890 Other specified postprocedural states; Z79.899 Other long term (current) drug therapy
CPT/HCPCS: 62110; 62900

== ENCOUNTER → 2019-01-31 | Outpatient (CLI) | payer OTHER | LOC: CAT 09:58 | DX: R91.8 Other nonspecific abnormal finding of lung field (principal); E27.49 Other adrenocortical insufficiency; M47.814 Spondylosis without myelopathy or radiculopathy, thoracic region; M41.84 Other forms of scoliosis, thoracic region ==

== ENCOUNTER → 2019-09-01 | Outpatient (CLI) | payer OTHER | LOC: SJCVCIMAG 10:03 | DX: R94.31 Abnormal electrocardiogram [ECG] [EKG] (principal); I21.29 ST elevation (STEMI) myocardial infarction involving other sites; R00.0 Tachycardia, unspecified; I48.91 Unspecified atrial fibrillation; I38 Endocarditis, valve unspecified; D68.59 Other primary thrombophilia; Z86.79 Personal history of other diseases of the circulatory system ==

== ENCOUNTER → 2019-09-04 | Outpatient (CLI) | payer OTHER | LOC: SJCVC 12:55 | DX: R00.1 Bradycardia, unspecified (principal); I48.91 Unspecified atrial fibrillation; I11.0 Hypertensive heart disease with heart failure; I50.42 Chronic combined systolic (congestive) and diastolic (congestive) heart failure; D68.59 Other primary thrombophilia; I38 Endocarditis, valve unspecified; Z82.49 Family history of ischemic heart disease and other diseases of the circulatory system; Z79.899 Other long term (current) drug therapy ==

== ENCOUNTER → 2019-10-06 | Outpatient (CLI) | payer OTHER | LOC: CAT 08-07 09:32 | PROVIDERS: ATTEND Pediatrics | DX: R91.8 Other nonspecific abnormal finding of lung field (principal); J98.4 Other disorders of lung ==

== ENCOUNTER → 2019-10-13 | Outpatient (CLI) | payer OTHER ==
[~2019-10-13] VITALS: Ht 167.6 cm; Wt 86.2 kg
[~2019-10-13] MED LIST changes: +COZAAR 25 MG TA25 M1 PO; +DILTIAZEM ER180 M2 PO; +STOOL SOFTENER1 EAC2 PO
--- NOTE | ~2019-10-13 | HPC ---
[facility] [address] [place] [address] PAIN MANAGEMENT CONSULTATION Name: ANALI RUSSO Room #: REG LARA Tanvi.#: [id number] Admission: 10/13/19 Attend Phys: Moe Vasquez MD Discharge: Date of : 36 Report #: [id number] THIS REPORT FOR: cc: Leonardo Felton,Moe Sung MD ~ CC: Leonardo Vasquez DATE OF SERVICE: 10/13/2019 The patient presents to the pain clinic today for evaluation and treatment of pain that radiates from her low back into both hips. She describes the pain as a deep aching sensation, 6/10. She has difficulty with standing and when she sits down, the pain seems to ease up pretty quickly. She has restless legs at night. She and her are thinking about moving from their 10 acres in [place]. 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 MEDICATIONS: Fluticasone, baclofen 10 mg b.i.d., Estradiol, losartan, pantoprazole, potassium, metoprolol, torsemide, diltiazem, calcium, multivitamins, Xarelto 20 mg daily for atrial fibrillation, ropinirole, MiraLax p.r.n. ALLERGIES: CODEINE. PAST MEDICAL HISTORY: Significant for hypertension, congestive heart failure and atrial fibrillation. PAST SURGICAL HISTORY: Vein stripping bilaterally, hysterectomy 1976, cataract surgery bilaterally, 2000, left total knee replacement ____ 1999. SOCIAL HISTORY: She is . Her is with her today. 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 She denies tobacco, denies alcohol. Lives in her own house. REVIEW OF SYSTEMS: Positive for fatigue, weakness, blurred vision, chronic sinus rhinitis, loss of hearing, and dyspnea on exertion. Frequent urination and restless leg syndrome. PHYSICAL EXAMINATION: GENERAL: 5 feet 6, 190 pounds. Blood pressure is 127/67, heart rate 53, [facility] [address] [place] [address] PAIN MANAGEMENT CONSULTATION Name: ANALI RUSSO Room #: [facility]#: [id number] Admission: 10/13/19 Attend Phys: Moe Vasquez MD Discharge: Date of : 36 Report #: [id number] respirations 16, O2 sat 100% on room air. BMI is 30.7. HEENT: Normal. Pupils are equal, round, reactive to light. EOMs are intact. Mucous membranes are moist. NECK: Supple. CHEST: Clear. CARDIAC: Rhythm was irregularly irregular. She also had periods of regular rhythm. No murmur was appreciated. MUSCULOSKELETAL: Back is tender throughout. There is some pain that radiates into both hips with straight leg raising. Sensation is intact. Her most exquisite pain is in the right hip and emanates from the sacroiliac joint. She has a positive Tacho's test. IMPRESSION: 1. Chronic low back pain with degenerative disease including degenerative disk disease and mild radicular features. 2. Sacroiliitis on the right. RECOMMENDATIONS: We will have her stop her Xarelto, bring her back and we will do a right sacroiliac joint injection. We will see how much of her pain we can relief from that. If necessary, may consider an epidural injection in the future. Followup visit is planned for injection in 1-2 weeks. By: 1416 1448 Moe Vasquez MD /nt
[2019-10-13 10:26] VITALS: BP 127/67
--- NOTE | 2019-10-13 10:49 | NUR ---
Pain Clinic Assessment: 1. History of Osteoarthritis: BACK History of Rheumatoid Arthritis: Not Applicable 2. Height: 5 ft. 6 in. 167.6 cm. Weight: 190.0 lb. oz. 86.184 kg. Patient's BMI: 30.7 3. Vital Signs: BP: 127/67 Pulse: 53 Resp: 16 Temp: 02 Sat: 100 ECG Mon: 4. Pain Intensity: 6 5. Fall Risk: Dizziness: N Needs help standing or walking: N Fallen in the last 3 months: N Fall risk comments: 6. Patient on Blood Thinner: XARELTO 7. History of Hypertension: Y 8. Opioid Therapy greater than 6 weeks: N Opiate Contract Signed: 9. Risk Assessment Tool Provided: LOW RISK 04/04 10. Functional Assessment Tool: 11. Recreational Drug Use: Never Drug Type: Tobacco Use: Never Smoker Tobacco Type: Amount or Packs/day: How Many Years: Alcohol Use: No Frequency: Quant:
== END ==
LOC: PAIN 07:02
PROVIDERS: ATTEND Anesthesiology Pain Medicine
DX: M46.1 Sacroiliitis, not elsewhere classified (principal); M54.5 Low back pain; G89.29 Other chronic pain; Z88.8 Allergy status to other drugs, medicaments and biological substances; Z91.013 Allergy to seafood

== ENCOUNTER → 2019-11-03 | Outpatient (CLI) | payer OTHER ==
[~2019-11-03] VITALS: Ht 167.6 cm; Wt 86.5 kg
--- NOTE | ~2019-11-03 | HPC ---
[facility] [place] [address] PAIN MANAGEMENT CONSULTATION Name: ANALI RUSSO Room #: REG LARA [place]#: [id number] Admission: 11/03/19 Attend Phys: Moe Vasquez MD Discharge: Date of : 37 Report #: [id number] THIS REPORT FOR: cc: Leonardo Felton,Leonardo Monique,Moe Ayon MD ~ CC: Leonardo Vasquez DATE OF SERVICE: 11/03/2019 Followup visit for sacroiliac joint injection. The patient was seen in consultation last week and has returned today for injection. She is off her blood thinner, Xarelto. We reviewed the diagnosis and procedure in some detail at her last visit. Questions were answered today about the shot. She continues to have localized pain in the right with some radiation with localized tenderness exquisite. IMPRESSION: Sacroiliac joint pain, sacroiliitis on the right. PROCEDURE: SI joint sacroiliac injection under fluoroscopic guidance. After informed consent, she was placed prone, skin prepped with ChloraPrep. Skin anesthetized over the lower portion of the sacroiliac joint. Using fluoroscopic guidance, I advanced the needle through the posterior ligament into the capsule and 0.25 mL of Omnipaque was injected and an arthrogram was obtained. It was followed by 2 mL of 0.25% bupivacaine mixed with 40 mg triamcinolone. She tolerated the procedure well and there were no complications and she was taken to Recovery Room for observation. Followup visit planned as needed. By: 0940 1050 Moe Vasquez MD /nt
[2019-11-03 08:42] VITALS: BP 143/70
--- NOTE | 2019-11-03 08:50 | NUR ---
Pain Clinic Assessment: 1. History of Osteoarthritis: BACK LEFT KNEE History of Rheumatoid Arthritis: Not Applicable 2. Height: 5 ft. 6 in. 167.6 cm. Weight: 190.6 lb. oz. 86.456 kg. Patient's BMI: 30.8 3. Vital Signs: BP: 143/70 Pulse: 55 Resp: 18 Temp: 02 Sat: 96 ECG Mon: 4. Pain Intensity: 3 5. Fall Risk: Dizziness: N Needs help standing or walking: N Fallen in the last 3 months: N Fall risk comments: 6. Patient on Blood Thinner: XARELTO 7. History of Hypertension: Y 8. Opioid Therapy greater than 6 weeks: N Opiate Contract Signed: 9. Risk Assessment Tool Provided: LOW RISK 04/04 10. Functional Assessment Tool: 11. Recreational Drug Use: Never Drug Type: Tobacco Use: Never Smoker Tobacco Type: Amount or Packs/day: How Many Years: Alcohol Use: No Frequency: Quant:
== END | disposition home or self-care (01) ==
LOC: PAIN 06:44
PROVIDERS: ATTEND Anesthesiology Pain Medicine
DX: M53.3 Sacrococcygeal disorders, not elsewhere classified (principal); G89.29 Other chronic pain; I48.91 Unspecified atrial fibrillation; Z79.01 Long term (current) use of anticoagulants

== ENCOUNTER → 2020-05-13 | Outpatient (CLI) | payer OTHER | LOC: SJCVC 11:37 | PROVIDERS: ATTEND Internal Medicine Cardiovascular Disease | DX: I48.0 Paroxysmal atrial fibrillation (principal); R94.31 Abnormal electrocardiogram [ECG] [EKG]; I11.0 Hypertensive heart disease with heart failure; I50.42 Chronic combined systolic (congestive) and diastolic (congestive) heart failure; D68.59 Other primary thrombophilia; I38 Endocarditis, valve unspecified; E78.5 Hyperlipidemia, unspecified; Z90.710 Acquired absence of both cervix and uterus; Z96.652 Presence of left artificial knee joint; Z88.8 Allergy status to other drugs, medicaments and biological substances; Z79.899 Other long term (current) drug therapy; Z82.49 Family history of ischemic heart disease and other diseases of the circulatory system ==

== ENCOUNTER → 2020-07-13 | Outpatient (CLI) | payer OTHER | LOC: SJCVCIMAG 07:37 | PROVIDERS: ATTEND Internal Medicine Cardiovascular Disease | DX: I08.8 Other rheumatic multiple valve diseases (principal); R00.1 Bradycardia, unspecified; I48.0 Paroxysmal atrial fibrillation; I11.0 Hypertensive heart disease with heart failure; I50.42 Chronic combined systolic (congestive) and diastolic (congestive) heart failure; K21.9 Gastro-esophageal reflux disease without esophagitis; Z88.5 Allergy status to narcotic agent; Z79.899 Other long term (current) drug therapy ==

== ENCOUNTER → 2020-10-01 | Outpatient (CLI) | payer OTHER | LOC: CAT 09:18 | PROVIDERS: ATTEND Pediatrics | DX: R91.1 Solitary pulmonary nodule (principal); J98.4 Other disorders of lung; I72.8 Aneurysm of other specified arteries ==

== ENCOUNTER → 2021-01-13 | Outpatient (CLI) | payer OTHER | END | disposition home or self-care (01) | LOC: SJCVC 10:04 | PROVIDERS: ATTEND Internal Medicine Cardiovascular Disease | DX: I48.0 Paroxysmal atrial fibrillation (principal); I11.0 Hypertensive heart disease with heart failure; I50.9 Heart failure, unspecified; E78.5 Hyperlipidemia, unspecified; Z82.49 Family history of ischemic heart disease and other diseases of the circulatory system; Z88.5 Allergy status to narcotic agent; Z91.013 Allergy to seafood; Z79.899 Other long term (current) drug therapy ==